=== PATIENT | male | born 1985 | race Caucasian/White ===

== ENCOUNTER 2017-06-15 15:53 | Emergency (ER) | payer BC ==
[~2017-06-15] VITALS: Ht 160 cm; Wt 74.5 kg
[~2017-06-15 15:53] MED LIST: AZIT250T94 PO; BACTDS PO; CEPH-443 PO; D-ME473S18 PO; IBUP-1542 PO
[2017-06-15 16:00] VITALS: Ht 160 cm; Wt 74.5 kg
--- NOTE | 2017-06-15 16:42 | ERA ---
ER Documentation Chief Complaint Date/Time DATE: 06/15/17 TIME: 16:40 Chief Complaint cough for 4 days fever started today HPI Otherwise healthy 31-year-old male presented with a chief complaint of cough 4 days and fever 1 day. Patient has taken NyQuil cough medicine with little relief. Denies any difficulty breathing, shortness of breath, chest pain, headache, meningismus, cough production, similar symptoms in past, smoking, alcohol abuse, drug abuse. No sick contacts. Patient also states she has bilateral ear discomfort that is more prominent in the right ear x1-2 days.Patient has no other complaints and describes no other associated manifestations. Nursing notes have been reviewed and are consistent with history given. ROS All systems reviewed and are negative except as per history of present illness. Medications Home Meds Active Scripts Azithromycin* (Zithromax*) 250 Mg Tablet, 250 MG PO .ZPATAWANDA DIRECTED, #6 TAB TAKE 500 MG (2 TABS) THE FIRST DAY THEN 250 MG (1 TAB) DAYS 2-5 Prov:JAH CALVERT PA-C 06/15/17 Ibuprofen* (Motrin*) 600 Mg Tab, 600 MG PO Q6, #14 TAB Prov:RANDEE GRIMM MD 09/02/16 Dextromethorphan Hb-Promethazine Hcl (Promethazine DM Syrup) 473 Ml Syrup, 5 ML PO Q6H Y for COUGH, #4 OZ Prov:RANDEE GRIMM MD 09/02/16 Azithromycin* (Zithromax*) 250 Mg Tablet, 250 MG PO .ZPACK DIRECTED, #6 TAB TAKE 500 MG (2 TABS) THE FIRST DAY THEN 250 MG (1 TAB) DAYS 2-5 Prov:RANDEE GRIMM MD 09/02/16 Cephalexin* (Keflex*) 500 Mg Capsule, 500 MG PO QID for 7 Days, CAP Prov:ALMITA MONROE PA-C 01/17/16 Sulfamethoxazole-Trimethoprim* (Bactrim* DS) 800-160 Mg Tab, 1 TAB PO BID for 7 Days, TAB Prov:ALMITA MONROE PA-C 01/17/16 Allergies Allergies: Coded Allergies: No Known Allergy (Unverified , 06/15/17) PMhx/Soc Hx Miscellaneous Medical Probl: Yes (PERINEUM ABCESS) Hx Alcohol Use: No Hx Substance Use: No Hx Tobacco Use: No Physical Exam Vitals Vital Signs Date Time Temp Pulse Resp B/P Pulse Ox O2 Delivery O2 Flow Rate FiO2 06/15/17 16:00 101.7 117 18 126/76 97 Physical Exam Const: Healthy-appearing. Well-nourished. Well-developed. No acute distress. Pulm: No dyspnea, stridor, tripoding or drooling. Good air movement. Rales and rhonchi auscultated in all lung mejia bilaterally. Neck: No cervical lymphadenopathy, masses or goiter palpated. Trachea midline. Supple ~ No meningismus. Auscultation reviled good air movement and no bruits. Nose: Normal nose without discharge, septal deviation, or sinus tenderness. Cardio: Regular rate and rhythm; No murmurs, gallops or rubs auscultated. No JVD grossly observed. Radial and posterior tibial pulses 2+ bilaterally. No cyanosis. Capillary refill less than 2 seconds. Oral: No oral edema visualized. Mucous membranes moist and pink. Head: Normocephalic, Atraumatic. Eyes: Non-injected; No scleral erythema, discharge or foreign body. EOMI and LOGAN bilaterally. Ears: Erythematous and mildly edematous external auditory ear canals bilaterally. EACs clear, TM normal bilaterally without erythema. Abd: Soft, non tender, non distended. No guarding, masses. Normal bowel sounds. No McBurney's point tenderness. MS: Normal motor strength, normal tone with gross examination. Skin: No petechiae or rashes. No ulcer, induration, jaundice. Good turgor. Back: No midline, flank or CVA tenderness. Ext: No cyanosis, edema or palpable cord. Normal movement of all extremities grossly observed. Neur: Awake, alert and oriented x3. Neurovascularly intact bilaterally. Psych: Normal Mood and Affect. Results 24 hrs Current Medications Medications (Trade) Dose Ordered Sig/Malick Route PRN Reason Start Time Stop Time Status Last Admin Dose Admin Ibuprofen (Motrin) 600 mg ONCE ONCE PO 06/15/17 17:00 06/15/17 17:01 DC 06/15/17 17:12 Procedures/MDM 31-year-old male presented with a chief complaint of cough and fever as described in history and physical examination. Ibuprofen was given to the patient with resolution of fever. Chest x-ray was obtained and was unremarkable. Physical exam was also remarkable for sinus tenderness. Most likely diagnosis postnasal drip causing cough from sinusitis. Azithromycin will be given. Patient has no other complaints. Do not have any suspicion for serious bacterial illness, endangerment of the airway, or other emergent pathologies. I have spoke with the patient regarding their condition and future management. They have verbally responded that they understand their status and treatment plan. The patients vitals are stable, and their current condition is appropriate for discharge. The patient will be given discharge instructions with return precautions. Departure Diagnosis: Primary Impression: Cough Condition: Stable Additional Instructions: Follow up with your PCP within the next 1-3 days for a more thorough evaluation and a possible referral to a specialist. Return the the emergency department immediately if symptoms worsen or change. If you have any questions regarding medications, ask your pharmacist or us before you leave. If any adverse reactions occur while taking your medications, discontinue the treatment and return to the emergency department immediately. Take your medications as directed, and complete the entire course of treatment. JAH CALVERT PA-C Jun 15, 2017 16:42
[2017-06-15] MEDS ORDERED: IBUPROFEN 600 MG TAB PO ONE (17:00)
--- NOTE | 2017-06-15 19:04 | RADRPT ---
PROCEDURE: Chest x-ray CLINICAL INDICATION: Cough TECHNIQUE: Chest 2 views COMPARISON: None FINDINGS: The heart is normal in size. The pulmonary vessels are normal in caliber. The lungs are clear. Th e costophrenic angles are sharp. The visualized bony thorax is unremarkable. IMPRESSION: No acute cardiopulmonary disease. RPTAT: HH .Marquis Steinberg MD, Date Time Electronically viewed and signed by .Marquis Steinberg MD, MD on 06/15/2017 18:18 .W/
[2017-06-15] MEDS ORDERED: AZIT250T94 PO (19:31)
[2017-06-15 20:15] VITALS: BP 126/93; PULSE 96; RESP 19; TEMP 98.6
== END 2017-06-15 20:16 | disposition home or self-care (01) ==
LOC: FTE 15:53
DX: R05 Cough (principal)
CPT/HCPCS: 71020; Z7502; Z7610

== ENCOUNTER 2017-06-19 12:17 | Emergency (ER) | payer BC ==
[~2017-06-19] VITALS: Ht 157.5 cm; Wt 78.0 kg
[2017-06-19 12:20] VITALS: Ht 157.5 cm; Wt 78.0 kg
--- NOTE | 2017-06-19 12:59 | ERD ---
ER Documentation Chief Complaint Date/Time DATE: 06/19/17 TIME: 12:58 Chief Complaint here 06/15 w/ same cough, runny nose. [facility] 31-year-old male presents with cough, runny nose and sore throat he has had for approximately a week and a half. Patient was seen on June 15, had a chest x -ray that was normal was treated with a Z-Harrison. He has been taking the medications but still has had a cough with sore throat. He states he has had a fever which she has been treating with Tylenol. He has not had any recent travel, hemoptysis, chest pain or shortness of breath. Patient denies abdominal pain, nausea, vomiting, diarrhea. He states that he has had several episodes of loose stools over the last 2 days. Patient is also being seen with his daughter who has had a fever, cough and runny nose for 2 days. ROS All systems reviewed and are negative except as per history of present illness. Medications Home Meds Active Scripts Ibuprofen* (Motrin*) 600 Mg Tab, 600 MG PO Q6, #30 TAB Prov:GA REESE PA-C 06/19/17 Benzocaine/Menthol* (Cepacol* Sore Throat Lozenges) 1 Each Lozenge, 1 EACH MM q2h Y for SORE THROAT, #30 LOZENGE Prov:GA REESE PA-C 06/19/17 Benzonatate* (Tessalon Perle*) 100 Mg Capsule, 100 MG PO Q8H Y for COUGH, #30 CAP Prov:GA REESE PA-C 06/19/17 Azithromycin* (Zithromax*) 250 Mg Tablet, 250 MG PO .DAVID DIRECTED, #6 TAB TAKE 500 MG (2 TABS) THE FIRST DAY THEN 250 MG (1 TAB) DAYS 2-5 Prov:JAH CALVERT PA-C 06/15/17 Ibuprofen* (Motrin*) 600 Mg Tab, 600 MG PO Q6, #14 TAB Prov:RANDEE GRIMM MD 09/02/16 Dextromethorphan Hb-Promethazine Hcl (Promethazine DM Syrup) 473 Ml Syrup, 5 ML PO Q6H Y for COUGH, #4 OZ Prov:RANDEE GRIMM MD 09/02/16 Azithromycin* (Zithromax*) 250 Mg Tablet, 250 MG PO .RellPACK DIRECTED, #6 TAB TAKE 500 MG (2 TABS) THE FIRST DAY THEN 250 MG (1 TAB) DAYS 2-5 Prov:RANDEE GRIMM MD 09/02/16 Cephalexin* (Keflex*) 500 Mg Capsule, 500 MG PO QID for 7 Days, CAP Prov:ALMITA MONROE PA-C 01/17/16 Sulfamethoxazole-Trimethoprim* (Bactrim* DS) 800-160 Mg Tab, 1 TAB PO BID for 7 Days, TAB Prov:ALMITA MONROE PA-C 01/17/16 Allergies Allergies: Coded Allergies: No Known Allergy (Unverified , 06/15/17) PMhx/Soc History of Surgery: No Anesthesia Reaction: No Hx Neurological Disorder: No Hx Respiratory Disorders: No Hx Cardiac Disorders: No Hx Psychiatric Problems: No Hx Miscellaneous Medical Probl: Yes (PERINEUM ABCESS) Hx Alcohol Use: No Hx Substance Use: No Hx Tobacco Use: No Smoking Status: Never smoker Physical Exam Vitals Vital Signs Date Time Temp Pulse Resp B/P Pulse Ox O2 Delivery O2 Flow Rate FiO2 06/19/17 12:20 98.0 99 18 140/76 99 Physical Exam General: Well-developed, well-nourished. The patient appears in no acute distress. HEENT: Head is normocephalic, atraumatic. No scleral icterus. Neck: Supple. Nontender. TMs normal, oropharynx is clear. Lungs: Clear to auscultation. Normal air movement. Heart: Regular rate and rhythm. S1 and S2 are normal. No murmurs, gallops, or rubs. Abdomen: Nondistended. Extremities: No clubbing or cyanosis. Moving extremities x 4. No weakness. Neurologic: Alert and oriented 3. No focal deficits. Normal speech and gait. Skin: Normal turgor. No rash or lesions. Results 24 hrs Chest X-ray 2V Interpreted by me as well as radiologist: Soft Tissue: No acute abnormalities Bones: No acute abnormalities Mediastinum/Cardiac Silhouette/Lungs: No acute abnormalities Procedures/MDM The patient is a 31-year-old male who comes in with an acute upper respiratory infection, presumed viral, Versus acute bronchitis. He is already currently being treated with antibiotics. Repeat chest x-ray is performed, there is no interval change, no evidence of infiltrate, no evidence of tuberculosis. Patient also comes in with his daughter who has had a fever and cough over the last 2 days, patient's symptoms may be presenting also with a viral upper respiratory infection, with a recent exposure at home.The patient has a differential diagnosis of a viral upper respiratory infection, bacterial upper respiratory infection, bronchitis, pneumonia, pharyngitis, laryngitis, epiglottitis, croup, pneumonia. Patient has a normal pulmonary examination, clear breath sounds, normal pulse oximetry, with no corrective measures needed at this time. Fluids, rest, antipyretics were encouraged. Departure Diagnosis: Primary Impression: GA Silva PA-C Jun 19, 2017 12:59
--- NOTE | 2017-06-19 13:09 | RADRPT ---
PROCEDURE: XR Chest. CLINICAL INDICATION: Cough and fever TECHNIQUE: PA and lateral views of the chest were obtained COMPARISON: Chest 06/15/2017 FINDINGS: The heart is within normal limits in size. There is no evidence of pulmonary vascular congestion acu te lung consolidation pleural effusions and pneumothorax. IMPRESSION: No evidence of acute cardiopulmonary disease. RPTAT:AAJJ Physician Maia Date Time Electronically viewed and signed by Bossman Hernandez Physician on 06/19/2017 13:09 /
[2017-06-19] MEDS ORDERED: IBUP-1542 PO (14:00)
[2017-06-19] MEDS ORDERED: BENZ1LOZ52 MM (14:00)
[2017-06-19] MEDS ORDERED: BENZ100C70 PO (14:00)
== END 2017-06-19 15:21 | disposition home or self-care (01) ==
LOC: FTE 12:17
DX: R05 Cough (principal)
CPT/HCPCS: 71020; Z7502